=== PATIENT | female | born 1985 | race African-American/Black ===

== ENCOUNTER 2023-08-17 16:15 | Emergency (ER) | payer OTHER ==
[2023-08-17 16:23] VITALS: BP 173/92; PULSE 104; RESP 19; TEMP 98.5; BMI 45.1
[2023-08-17 18:02] LABS: BASO % 0.7 % (0-2.0); EOS % 0.4 % (0-4.5); HEMATOCRIT 37.5 % (32.4-45.2); HEMOGLOBIN 12.3 GM/dL (10.7-15.3); LYMPH % 22.8 % (8-40); MCH 27.4 pg (25.7-33.7); MCHC 32.8 g/dl (32.0-36.0); MEAN CELL VOLUME 83.6 fl (80-96); MEAN PLT VOLUME 7.3 fl (7.5-11.1); MONO % 3.6 % (3.8-10.2); NEUT % 72.5 % (42.8-82.8); PLATELET COUNT 441 10^3/uL (134-434); RBC 4.49 M/mm3 (3.60-5.2); RDW 15.7 % (11.6-15.6); WHITE BLOOD COUNT 9.6 K/mm3 (4.0-10.0)
[2023-08-17 18:06] LABS: INR 1.03 (0.83-1.09)
[2023-08-17 18:10] LABS: POTASSIUM 4.6 mmol/L (3.5-5.1)
[2023-08-17 18:13] LABS: ALBUMIN 3.8 g/dl (3.4-5.0); BLOOD UREA NITROGEN 7.1 mg/dL (7-18)
[2023-08-17 18:16] LABS: CREATININE 0.6 mg/dL (0.55-1.3)
[2023-08-17 18:18] LABS: BILIRUBIN,TOTAL 0.5 mg/dL (0.2-1); TOT PROT 8.3 g/dl (6.4-8.2)
[2023-08-17] MEDS ORDERED: SODIUM CHLORIDE 500 ML IV STA (18:31)
== END 2023-08-17 19:00 | disposition home or self-care (01) ==
LOC: JER 16:15
DX: M79.601 Pain in right arm (principal); R20.2 Paresthesia of skin; I10 Essential (primary) hypertension; R00.0 Tachycardia, unspecified
CPT/HCPCS: 36415; 80053; 84439; 84443; 84484; 84703; 85025; 85610; 93005; 93010; 99284-25

== ENCOUNTER 2025-07-28 23:07 | Emergency (ER) | payer OTHER ==
[2025-07-28 23:32] VITALS: RESP 16; BMI 45.1
[2025-07-28 23:48] VITALS: BP 144/85; PULSE 84; TEMP 99
[2025-07-29 00:41] LABS: MCHC 30.8 g/dl (32.2-35.5); MEAN CELL VOLUME 73.9 fl (79.4-94.8); MEAN PLT VOLUME 8.8 fl (9.4-12.3); RDW 17.2 % (12.1-16.8)
[2025-07-29 01:08] LABS: GLUCOSE,RANDOM 134 mg/dL (74-106); TOT PROT 7.9 g/dl (6.4-8.2)
[2025-07-29 01:09] LABS: CO2 18 mmol/L (21-32)
[2025-07-29 01:11] LABS: ALK PHOS 77 U/L (40-150)
[2025-07-29 01:14] LABS: CREATININE 0.75 mg/dL (0.55-1.3); SGPT/ALT 13 U/L (0-55)
[2025-07-29 01:48] LABS: HCV DIAGNOSTIC IN-HOUSE W/RFLX NON-REACTIVE (NONREACTIVE); HIV INTERPRETATION NEGATIVE (NEGATIVE); SGOT/AST < 6 U/L (5-34)
== END 2025-07-29 02:28 | disposition home or self-care (01) ==
LOC: FER 23:07
DX: R07.89 Other chest pain (principal)
CPT/HCPCS: 36415; 71046-TC-FY; 80053; 84484; 85025; 86803; 87389; 93005; 99285-25